=== PATIENT | female | born 1970 | race Caucasian/White ===

== ENCOUNTER → 2021-05-03 | Outpatient (CLI) | payer MEDICARE, MEDICAID | LOC: COL.PUL 11:25 → COL.LAB 11:25 → COL.PUL 12:00 | DX: J96.12 Chronic respiratory failure with hypercapnia (principal) | CPT/HCPCS: A9540; A9567 ==

== ENCOUNTER 2023-08-03 11:47 | Day surgery (SDC) | payer MEDICARE, MEDICAID ==
[2023-08-03] VITALS (9 sets, daily range): BP systolic 103–122; BP diastolic 52–85; PULSE 58–64; TEMP 98.2
[2023-08-03 12:29] LABS: HEMATOCRIT 40.4 % (37.0-47.0); MEAN CELL VOLUME 84 fl (80.0-100.0); MEAN CORPUSCULAR HEMOGLOBIN 27 pg (27-31); MEAN CORPUSCULAR HGB CONC 32 g/dl (33.0-37.0); MEAN PLATELET VOLUME 11.1 fl (7.4-10.4); PLATELET COUNT 248 K/mm3 (130-400); RED BLOOD COUNT 4.83 M/mm3 (4.10-5.30); REDCELL DISTRIBUTION WIDTH-CV 13.9 % (11.5-14.5)
[2023-08-03 12:35] LABS: INR 1.2 (0.8-3.0); PROTHROMBIN TIME 13.4 SECONDS (9.7-12.8)
[2023-08-03 12:37] LABS: PARTIAL THROMBOPLASTIN TIME 31.6 SECONDS (26.0-37.0)
[2023-08-03] MEDS ORDERED: BUSPAR10 MG PO (12:41)
[2023-08-03] MEDS ORDERED: CELEXA40 MG PO (12:41)
[2023-08-03] MEDS ORDERED: ZOCOR 20MG20 MG PO (12:41)
[2023-08-03 12:42] LABS: CALCIUM 9.9 mg/dL (8.4-10.2); CREATININE, serum 0.95 mg/dL (0.57-1.11); POTASSIUM 4.6 mmol/L (3.5-4.5)
[2023-08-03] MEDS ORDERED: LEVOXYL0.137 MG PO (12:42)
[2023-08-03] MEDS ORDERED: PLAVIX 75MG TAB75 MG (12:42)
[2023-08-03] MEDS ORDERED: TOPROL XL 25MG25 MG (12:43)
[2023-08-03] MEDS ORDERED: LASIX 40MG TABL40 MG PO (12:43)
[2023-08-03] MEDS ORDERED: ASPIRIN 81M81 MG/TA2 PO (12:44)
[2023-08-03] MEDS ORDERED: K-DUR20 MEQ PO (12:44)
[2023-08-03 15:57] LABS: CHOLESTEROL RISK RATIO 5.1
--- NOTE | 2023-08-03 17:49 | NUR ---
pt tolerated recovery period well. pt right radial dressing was clean dry and intact upon discharge. pt was assisted to main lobby via wheelchair and was accompanied by sister. pt's vs remained within normal limits and pt verbalized understanding of discharge instructions. pt IV discontinued and pt remained free from acute concerns and complaints upon discharge.
== END 2023-08-03 17:30 | disposition home or self-care (01) ==
LOC: COL.CAR 11:47
PROVIDERS: Internal Medicine Interventional Cardiology; Nurse Practitioner
DX: R07.9 Chest pain, unspecified (principal); R94.39 Abnormal result of other cardiovascular function study; R94.31 Abnormal electrocardiogram [ECG] [EKG]; I89.0 Lymphedema, not elsewhere classified; E78.5 Hyperlipidemia, unspecified
CPT/HCPCS: C1769; C1894; J1644; J2250; J3010; Q9967